=== PATIENT | male | born 1995 ===

== ENCOUNTER 2017-09-23 11:12 | Emergency (ER) | payer MEDICAID ==
[2017-09-23 11:19] VITALS: BMI 23.1
[2017-09-23 11:20] VITALS: BP 115/76; PULSE 71; RESP 20; TEMP 98.8; O2SAT 99
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
== END 2017-09-23 12:49 | disposition home or self-care (01) ==
LOC: H.ER 11:12
DX: F43.20 Adjustment disorder, unspecified (principal); F32.9 Major depressive disorder, single episode, unspecified

== ENCOUNTER 2017-12-07 03:15 | Emergency (ER) | payer MEDICAID ==
[2017-12-07 03:15] VITALS: BMI 23.1
[2017-12-07 03:35] VITALS: BP 113/68; PULSE 81; RESP 17; TEMP 99.2; O2SAT 99
--- NOTE | 2017-12-07 04:36 | ED PDOC ---
HPI: CCC, URI, Sore Throat Time Seen by Provider: 12/07/17 03:49 Chief Complaint (Nursing): ENT Problem Chief Complaint (Provider): Ear Pain History Per: Patient History/Exam Limitations: no limitations Onset/Duration Of Symptoms: Days (x 2 weeks) Current Symptoms Are (Timing): Still Present Ear Symptoms: Left: Ear Pain Additional Complaint(s): 22 year old male presents to the ED with a left earache for the last 2 weeks. Patient saw PMD one week ago, and was diagnosed with an inner and outer ear infection and was given a prescription for Levaquin pills and ear drops. Reports he is compliant with both, but does not use ear drops as often as directed. Initially was taking Motrin for pain, but has not taken it in more than 4 days. Persistence of symptoms prompted ED visit. Denies fever. PMD: Dr. Soriano Past Medical History Reviewed: Historical Data, Nursing Documentation, Vital Signs Vital Signs: Last Vital Signs Temp 99.2 F 12/07/17 03:32 Pulse 81 12/07/17 03:32 Resp 17 12/07/17 03:32 BP 113/68 12/07/17 03:32 Pulse Ox 99 12/07/17 06:28 - Medical History PMH: Asthma, Fractures (right wrist) Denies: Diabetes - Family History Family History: States: Unknown Family Hx - Home Medications Home Medications: Ambulatory Orders Medication Instructions Recorded Benzonatate 200 mg PO TID PRN #20 capsule 05/16/16 Oseltamivir Phosphate [Tamiflu] 75 mg PO BID #10 capsule 05/16/16 Ibuprofen [Motrin Tab] 600 mg PO Q6 #30 tab 09/12/17 Ciprofloxacin/Dexamethasone 4 drop BID #1 bottle 12/07/17 [Ciprodex 0.3%-0.1% 7.5 Ml] Naproxen 500 mg PO BID PRN #20 tab 12/07/17 - Allergies Allergies/Adverse Reactions: Allergies Allergy/AdvReac Type Severity Reaction Status Date / Time No Known Allergies Allergy Verified 09/23/17 11:30 Review of Systems ROS Statement: Except As Marked, All Systems Reviewed And Found Negative Constitutional: Negative for: Fever ENT: Positive for: Ear Pain Physical Exam - Reviewed Nursing Documentation Reviewed: Yes Vital Signs Reviewed: Yes - Physical Exam Comments: GENERAL APPEARANCE: Patient is awake, alert, oriented x 3, in no acute distress. SKIN: Warm, dry; (-) cyanosis. ENMT:Left ear canal: faint erythema, scant amount of exudate. Pain with helix and tragus movement of the left ear. (-) cerumen impaction. Bilateral TMs: (-) bulging and (-) erythema, (-)effusion, (-) perforation,(-) vesicles. Frontal / maxillary sinuses: (-) tenderness. (-) TMJ tenderness. Pharynx: Clear; (-) erythema, (-) exudate. Airway patent: (-) stridor. NECK: Supple, FROM (-) stiffness, (-) tenderness, (-) lymphadenopathy. LUNGS: clear to auscultation bilaterally, (-) wheezing, (-) rhonchi. CARDIAC: RRR - ECG O2 Sat by Pulse Oximetry: 99 (RA) Pulse Ox Interpretation: Normal Medical Decision Making Medical Decision Makin:15 Impression: otalgia and otitis externa --Motrin 600 mg PO as patient declined Toradol IM --Accucheck --Re-evaluation Accucheck: 95 On exam, patient remains AAOx3, in no acute distress. Lungs clear to auscultation, cardiac RRR, repeat neuro exam shows no focal findings. VSS, stable for discharge. Lab/Diagnostic results d/w the patient in great detail. Diagnosis of otalgia and otitis externa of left ear d/w the patient. Based on history, exam and diagnostic results, plan will be for outpatient follow up with PMD/ENT. Patient instructed to follow-up with pmd / referral provided / the clinic in 1- 2 days without fail. Advised to take medication as prescribed. Return to the emergency room at any time for any new or worsening symptoms. Patient states he fully agrees with and understands discharge instructions. States that he agrees with the plan and disposition. Verbalized and repeated discharge instructions and plan. I have given the patient opportunity to ask any additional questions. Disposition - Clinical Impression Clinical Impression: Otitis externa, Otalgia of left ear - Patient ED Disposition Is Patient to be Admitted: No Counseled Patient/Family Regarding: Studies Performed, Diagnosis, Need For Followup, Rx Given - Disposition Referrals: Jas Monterroso MD [Staff Provider] - Disposition: Routine/Home Disposition Time: 04:36 Condition: STABLE Additional Instructions: The emergency medical care you received today was directed towards the acute presenting symptoms. If you were prescribed any medication, please fill it and give as directed. It may take several days for your symptoms to resolve. Return to the Emergency Department at any time if symptoms worsen, do not improve, or if any other problems arise. Please contact your doctor in 2 days for re-evaluation and follow up / or call one of the physicians/clinics you have been referred to that are listed on the Patient Visit Information form that is included in your discharge packet. Bring any paperwork you were given at discharge with you along with any medications to your follow up visit. Our treatment cannot replace ongoing medical care by a primary care provider (PCP) outside of the emergency department. Prescriptions: Ciprofloxacin/Dexamethasone [Ciprodex 0.3%-0.1% 7.5 Ml] 4 drop BID #1 bottle Naproxen 500 mg PO BID PRN #20 tab PRN Reason: Pain, Moderate (4-7) Instructions: Outer Ear Infection Forms: [facility] (Amharic) Print Language: LATVIAN - POA Present On Arrival: None
== END 2017-12-07 05:11 | disposition home or self-care (01) ==
LOC: H.ER 03:15
DX: H60.92 Unspecified otitis externa, left ear (principal)

== ENCOUNTER 2018-03-16 16:11 | Emergency (ER) | payer MEDICAID ==
[2018-03-16 16:11] VITALS: BMI 23.1
[2018-03-16 16:19] VITALS: BP 138/92; PULSE 158; RESP 26; TEMP 98.6; O2SAT 98
[2018-03-16] MEDS ORDERED: Lidocaine 1% Inj (20ml) IJ ONE (16:26)
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
[2018-03-16] MEDS ORDERED: Lidocaine 1% Inj (20ml) ONE (16:33)
--- NOTE | 2018-03-16 18:09 | CT ---
Date of service: 03/16/2018 PROCEDURE: CT HEAD WITHOUT CONTRAST. HISTORY: r/o bleed COMPARISON: None available. TECHNIQUE: Axial computed tomography images were obtained through the head/brain without intravenous contrast. Radiation dose: Total exam DLP = 852.24 mGy-cm. This CT exam was performed using one or more of the following dose reduction techniques: Automated exposure control, adjustment of the mA and/or kV according to patient size, and/or use of iterative reconstruction technique. FINDINGS: HEMORRHAGE: No intracranial hemorrhage. BRAIN: Normal molina-white matter differentiation and density are appreciated throughout the cerebrum and cerebellum with the brainstem appearing unremarkable as well. There is no mass effect. There is no suspicious extra-axial fluid collection and the midline brain anatomy appears diffusely unremarkable. VENTRICLES: Unremarkable. No hydrocephalus. CALVARIUM: Unremarkable. PARANASAL SINUSES: Multifocal ethmoid sinusitis identified. MASTOID AIR CELLS: Unremarkable as visualized. No inflammatory changes. OTHER FINDINGS: None. IMPRESSION: Unremarkable noncontrast head CT.
== END 2018-03-16 18:15 | disposition home or self-care (01) ==
LOC: H.ER 16:11
DX: S01.01XA Laceration without foreign body of scalp, initial encounter (principal); S09.90XA Unspecified injury of head, initial encounter; Y04.2XXA Assault by strike against or bumped into by another person, initial encounter; J45.909 Unspecified asthma, uncomplicated; Z86.59 Personal history of other mental and behavioral disorders

== ENCOUNTER 2018-03-18 15:57 | Emergency (ER) | payer MEDICAID ==
[2018-03-18 15:57] VITALS: BMI 23.1
[2018-03-18 16:02] VITALS: BP 113/70; PULSE 101; RESP 16; TEMP 98.3; O2SAT 98
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
== END 2018-03-18 17:09 | disposition home or self-care (01) ==
LOC: H.ER 15:57
DX: F31.9 Bipolar disorder, unspecified (principal); F17.200 Nicotine dependence, unspecified, uncomplicated; J45.909 Unspecified asthma, uncomplicated; Z00.8 Encounter for other general examination